=== PATIENT | female | born 1950 | race Caucasian/White ===

== ENCOUNTER 2025-02-07 12:13 | Emergency (ER) | payer MEDICARE ==
[~2025-02-07] VITALS: Ht 154.9 cm; Wt 67.8 kg
[2025-02-07] MEDS ORDERED: CYMBALTA20 MG PO (14:17)
[2025-02-07] MEDS ORDERED: SIMVASTATIN20 MG PO (14:17)
[2025-02-07] MEDS ORDERED: SYNTHROID88 MCG PO (14:17)
[2025-02-07] MEDS ORDERED: LOSARTAN POTASS50 MG PO (14:17)
[2025-02-07] MEDS ORDERED: MULTIVITAMINS1 EAC6 PO (14:17)
[2025-02-07] MEDS ORDERED: SLOW-MAG64 MG PO (14:17)
[2025-02-07] MEDS ORDERED: AMLODIPINE BESY10 MG PO (14:17)
[2025-02-07] MEDS ORDERED: AMBIEN5 MG PO (14:17)
[2025-02-07] MEDS ORDERED: IBUPROFEN600 MG PO (15:31)
[2025-02-07 15:40] VITALS: PULSE 67; RESP 16; TEMP 98.4; O2SAT 98
[2025-02-07] MEDS: IBUPROFEN 600 MG TAB PO STA (15:50)
== END 2025-02-07 15:40 | disposition home or self-care (01) ==
LOC: FSED 12:37
DX: M79.621 Pain in right upper arm (principal); M79.18 Myalgia, other site; M19.09 Primary osteoarthritis, other specified site; I10 Essential (primary) hypertension; E03.9 Hypothyroidism, unspecified; E78.5 Hyperlipidemia, unspecified; F41.9 Anxiety disorder, unspecified; F32.A Depression, unspecified; M06.9 Rheumatoid arthritis, unspecified; M35.00 Sjogren syndrome, unspecified
CPT/HCPCS: 99284